=== PATIENT | male | born 1995 | race Caucasian/White ===

== ENCOUNTER → 2018-09-27 10:11 | Outpatient (CLI) | payer OTHER, SELFPAY ==
--- NOTE | 2018-09-27 10:24 | DI.RAD.S_ITS ---
PROCEDURE: XR HAND LT MIN 3V INDICATIONS: l hand pain TECHNIQUE: 3 views of the hand(s) acquired. COMPARISON: None. FINDINGS: Bones: No fractures or dislocations. Carpal bones are normally aligned. No suspicious bony lesions. Soft tissues: No suspicious soft tissue calcifications. IMPRESSION: No fractures. Dictated by: Troy hSi M.D. on 09/27/2018 at 10:50 Approved by: Troy Shi M.D. on 09/27/2018 at 10:51
== END ==
PROVIDERS: Visit Provider Physician Assistant
DX: M79.642 Pain in left hand (principal)
CPT/HCPCS: 73130